=== PATIENT | female | born 1995 | race Caucasian/White ===

== ENCOUNTER 2019-04-01 14:28 | Inpatient (IN) ==
[2019-04-01] MEDS ORDERED: FAMOTIDINE 20 MG/2 ML VIAL IV ONE (14:39)
[2019-04-01] MEDS ORDERED: ceFAZolin 3,000 MG in SYRINGE 1 EACH IV ONE (14:39)
[2019-04-01] MEDS ORDERED: CITRIC ACID/SODIUM CITRATE 30 ML UDCUP PO ONE (14:39)
[2019-04-01] MEDS ORDERED: METOCLOPRAMIDE 10 MG/2 ML VIAL IV ONE (14:41)
[2019-04-01 15:09] LABS: Basophils % 0.1 % (0.0-0.8); Eosinophils # 0.1 10*3/uL (0.0-0.87); Eosinophils % 0.5 % (0.00-10.9); Hematocrit 32.4 VOL% (35.7-47.0); Hemoglobin 10.7 GM/DL (12.0-16.0); Immature Granulocytes % 0.6 %; Immature Granulocytes Absolute 0.06 #; Lymphocytes # 2.2 10*3/uL (1.4-4.0); Lymphocytes % 22.3 % (21.3-54.2); Mean Corpuscular Volume 85.7 FL (87-102); Mean Platelet Volume 11.8 FL (9.6-12.0); Monocytes % 4.9 % (1.7-12.7); Neutrophils % 71.6 % (38.7-73.9); Platelet Count 272 T/CUMM (130-400); Red Blood Count 3.78 MC/CUMM (3.8-5.5); Red Cell Distribution Width 15.8 % (9.3-17.3)
[2019-04-01 15:29] LABS: INR 0.8; PT Patient Result 9.1 SECS (9.6-12.2); Partial Thromboplastin Time 23.2 SECS (20.8-36.0)
[2019-04-01 15:36] LABS: Albumin 2.4 G/DL (3.4-5.0); Bilirubin,Total 0.4 MG/DL (0.2-1.0); Calcium 8.3 MG/DL (8.5-10.1); Osmolality,Calculated 274.5 MOS/KG (273-304); Total Protein 6.8 G/DL (6.4-8.3)
[2019-04-01] MEDS: LACTATED RINGERS 1,000 ML IV SCH ×2 (15:53→17:21)
[2019-04-01] MEDS ORDERED: OXYTOCIN/LR 20 UNIT/1,000 ML BAG IV ONE ×3 (17:34→19:21)
[2019-04-01] MEDS ORDERED: diphenhydrAMINE 50 MG/1 ML VIAL ONE (18:00)
[2019-04-01] MEDS ORDERED: DEXAMETHASONE 4 MG/1 ML VIAL ONE (18:02)
[2019-04-01] MEDS ORDERED: BUPIVACAINE SPINAL 0.75% 2 ML AMP SPINAL ONE (18:10)
[2019-04-01] MEDS ORDERED: DEXAMETHASONE 4 MG/1 ML VIAL IV ONE (18:29)
[2019-04-01] MEDS ORDERED: diphenhydrAMINE 50 MG/1 ML VIAL IV ONE (18:29)
[2019-04-01] MEDS ORDERED: CARBOPROST TROMETHAMINE 250 MCG/ML AMP IM ONE (18:48)
[2019-04-01] MEDS ORDERED: miSOPROStoL 200 MCG TABLET ONE (18:50)
[2019-04-01] MEDS ORDERED: miSOPROStoL 200 MCG TABLET PO ONE (18:51)
[2019-04-01 19:10] LABS: Apearance,Urine CLEAR (Clear); Bacteria,Urine Occasional /HPF (Few); Bilirubin,Urine Negative (Negative); Blood, Urine Negative (Negative); Glucose,Urine (UA) Negative (Negative); Ketones,Urine Negative (Negative); Mucus,Urine Few /LPF (Occasional); Nitrite,Urine Negative (Negative); Protein,Urine 30 MG/DL; RBC,Urine <1 /HPF (0-4); Squamous Epithelial Cell,Urine Occasional /HPF (0-10); Urine Color Yellow (Yellow); Urine Specific Gravity 1.026 (1.001-1.035); Urine Urobilinogen < 2.0 EU/DL (0.2-1.0); WBC,Urine 2 /HPF (0-6)
[2019-04-01] MEDS ORDERED: BENZOCAINE 20%/MENTHOL 0.5% SPRAY 56 GM CAN TOP PRN (19:21)
[2019-04-01] MEDS ORDERED: WITCH HAZEL PADS 100/JAR TOP PRN (19:21)
[2019-04-01] MEDS ORDERED: DIPH/TET/ACEL PERT BOOSTER VACCINE 0.5 ML VIAL IM ONE (19:21)
[2019-04-01] MEDS ORDERED: oxyCODONE/ACETAMINOPHEN 5-325 MG TABLET PO PRN (19:21)
[2019-04-01] MEDS ORDERED: LANOLIN 50% CREAM 0.3 OZ TUBE TOP PRN (19:21)
[2019-04-01] MEDS ORDERED: HYDROCORTISONE 2.5% RECTAL CREAM 30 GM TUBE TOP PRN (19:21)
[2019-04-01] MEDS ORDERED: RHO(D) IMMUNE GLOBULIN 300 MCG SYRINGE IM ONE (19:21)
[2019-04-01] MEDS ORDERED: MEASLES/MUMPS/RUBELLA VACCINE 0.5 ML VIAL SUBCUT ONE (19:21)
[2019-04-01] MEDS ORDERED: ONDANSETRON 4 MG/2 ML VIAL IV PRN (19:21)
[2019-04-01] MEDS ORDERED: BISACODYL 10 MG SUPP RECTAL PRN (19:21)
[2019-04-01] MEDS ORDERED: ACETAMINOPHEN 325 MG TABLET PO PRN (19:21)
[2019-04-01] MEDS ORDERED: PROMETHAZINE 25 MG/1 ML VIAL ONE (19:48)
[2019-04-01] MEDS ORDERED: MORPHINE 10 MG/10 ML VIAL ONE (19:48)
[2019-04-01] MEDS ORDERED: ePHEDrine 50 MG/ML AMP ONE (19:48)
[2019-04-01] MEDS ORDERED: PHENYLEPHRINE 1 MG/10 ML SYRINGE IV ONE (19:49)
[2019-04-01] MEDS ORDERED: LACTATED RINGERS 1,000 ML IV ONE (19:49)
[2019-04-01] MEDS ORDERED: ONDANSETRON 4 MG/2 ML VIAL ONE (19:49)
[2019-04-01] MEDS: IBUPROFEN 800 MG TABLET PO PRN (21:03)
[2019-04-02] MEDS: CLINDAMYCIN INJ 900 MG in PREMIX 1 EACH IV SCH ×2 (02:07→10:52)
[2019-04-02] MEDS: DOCUSATE SODIUM 100 MG CAPSULE PO SCH ×3 (02:19→20:19)
[2019-04-02] MEDS: LACTATED RINGERS 1,000 ML IV SCH (03:52)
[2019-04-02 05:48] LABS: Basophils % 0.1 % (0.0-0.8); Hematocrit 27.2 VOL% (35.7-47.0); Immature Granulocytes % 0.9 %; Immature Granulocytes Absolute 0.13 #; Lymphocytes # 2.5 10*3/uL (1.4-4.0); Lymphocytes % 18.1 % (21.3-54.2); Mean Corpuscular HGB Conc 33.1 GM/DL (32-36); Mean Corpuscular Volume 85.8 FL (87-102); Mean Platelet Volume 12.1 FL (9.6-12.0); Neutrophils % 74.9 % (38.7-73.9); Platelet Count 210 T/CUMM (130-400); Red Blood Count 3.17 MC/CUMM (3.8-5.5); Red Cell Distribution Width 15.6 % (9.3-17.3); White Blood Count 13.9 T/CUMM (4-12)
[2019-04-02] MEDS ORDERED: FUROSEMIDE 40 MG TABLET PO ONE (07:12)
[2019-04-02] MEDS: oxyCODONE/ACETAMINOPHEN 5-325 MG TABLET PO PRN ×3 (07:36→23:22)
[2019-04-02] MEDS: IBUPROFEN 800 MG TABLET PO PRN ×2 (11:10→20:19)
[2019-04-02] MEDS ORDERED: diphenhydrAMINE CAP 50 MG CAPSULE PO PRN (11:15)
[2019-04-02 11:38] LABS: Apearance,Urine CLEAR (Clear); Bacteria,Urine Occasional /HPF (Few); Bilirubin,Urine Negative (Negative); Blood, Urine Large mg/dL (Negative); Glucose,Urine (UA) Negative (Negative); Ketones,Urine Negative (Negative); Nitrite,Urine Negative (Negative); Protein,Urine Negative; RBC,Urine 4 /HPF (0-4); Squamous Epithelial Cell,Urine Occasional /HPF (0-10); Urine Color Straw (Yellow); Urine Specific Gravity 1.003 (1.001-1.035); Urine Urobilinogen < 2.0 EU/DL (0.2-1.0); WBC,Urine 3 /HPF (0-6)
[2019-04-02] MEDS: LABETALOL 100 MG TABLET PO SCH ×2 (13:43→22:07)
[2019-04-02] MEDS: OXYBUTYNIN XL 5 MG TABLET PO SCH (16:05)
[2019-04-02] MEDS ORDERED: SIMETHICONE CHEW 80 MG TABLET PO PRN (19:55)
[2019-04-02] MEDS: MAGNESIUM HYDROXIDE SUSP 30 ML UDCUP PO PRN (20:19)
[2019-04-03] MEDS: LABETALOL 100 MG TABLET PO SCH (05:32)
[2019-04-03 07:44] VITALS: BP 114/63
[2019-04-03] MEDS: OXYBUTYNIN XL 5 MG TABLET PO SCH (08:51)
[2019-04-03] MEDS: DOCUSATE SODIUM 100 MG CAPSULE PO SCH (08:51)
[2019-04-03] MEDS: MAGNESIUM HYDROXIDE SUSP 30 ML UDCUP PO PRN (08:52)
[2019-04-03] MEDS ORDERED: INFLUENZA VIRUS VACCINE 0.5 ML SYRINGE IM ONE (11:00)
== END 2019-04-03 14:00 | disposition home or self-care (01) | DRG 788 ==
LOC: N.LDOUT 14:28 → N.LD 14:32 → N.OB 22:15
PROVIDERS: ADMIT Specialist; ATTEND Specialist
PROC: LDCSECT (ICD-10-PCS; 2019-04-01 17:00)

== ENCOUNTER 2022-01-31 15:41 | Inpatient (IN) ==
[2022-01-31] MEDS ORDERED: MAGNESIUM SULF RIDER 4 GM/100 ML PREMIX IV PRN (17:03)
[2022-01-31] MEDS ORDERED: MAGNESIUM SULF RIDER 2 GM/50 ML PREMIX IV PRN (17:03)
[2022-01-31] MEDS ORDERED: traMADol 50 MG TABLET PO PRN (17:03)
[2022-01-31] MEDS ORDERED: PROMETHAZINE 25 MG/1 ML VIAL IM PRN (17:03)
[2022-01-31] MEDS ORDERED: POTASSIUM CHLORIDE RIDER 10 MEQ/100 ML PREMIX IV PRN (17:03)
[2022-01-31] MEDS ORDERED: POTASSIUM CHLORIDE 20 MEQ TABLET PO PRN (17:03)
[2022-01-31] MEDS ORDERED: ACETAMINOPHEN 325 MG TABLET PO PRN (17:03)
[2022-01-31] MEDS ORDERED: MORPHINE 2 MG/1 ML SYRINGE IV PRN (17:03)
[2022-01-31] MEDS ORDERED: hydrALAZINE 20 MG/1 ML VIAL IV PRN (17:20)
[2022-01-31 18:43] LABS: Basophils % 0.4 % (0.0-0.8); Eosinophils # 0.2 10*3/uL (0.0-0.87); Eosinophils % 2.1 % (0.00-10.9); Hematocrit 43.3 VOL% (35.7-47.0); Hemoglobin 14.3 GM/DL (12.0-16.0); Immature Granulocytes % 0.1 %; Immature Granulocytes Absolute 0.01 #; Lymphocytes # 3.2 10*3/uL (1.4-4.0); Lymphocytes % 41.3 % (21.3-54.2); Mean Corpuscular Volume 86.9 FL (87-102); Mean Platelet Volume 10.6 FL (9.6-12.0); Monocytes # 0.4 10*3/uL (0.11-0.8); Monocytes % 5.4 % (1.7-12.7); Neutrophils % 50.7 % (38.7-73.9); Platelet Count 267 T/CUMM (130-400); Red Blood Count 4.98 MC/CUMM (3.8-5.5); White Blood Count 7.7 T/CUMM (4-12)
[2022-01-31 19:07] LABS: Calcium 9.4 MG/DL (8.5-10.1); Osmolality,Calculated 280.1 MOS/KG (273-304); Potassium 3.3 MMOL/L (3.5-5.1)
[2022-01-31 19:10] LABS: Alanine Aminotransferase 51 U/L (13-56); Albumin 4.1 G/DL (3.4-5.0); Alkaline Phosphatase 67 U/L (45-117); Aspartate Amino Transferase 21 U/L (0-37); Bilirubin,Direct < 0.100 MG/DL (0.0-0.20); Bilirubin,Indirect 0.3 MG/DL (0.0-1.0); Total Protein 8.4 G/DL (6.4-8.2)
[2022-01-31] MEDS: DOCUSATE SODIUM 100 MG CAPSULE PO SCH (20:41)
[2022-01-31] MEDS: SODIUM CHLORIDE 0.9% 1,000 ML IV SCH (21:18)
[2022-01-31] MEDS: CIPROFLOXACIN INJ 400 MG/200 ML PREMIX IV SCH (21:19)
[2022-01-31] MEDS: ONDANSETRON 4 MG/2 ML VIAL IV PRN (21:24)
[2022-01-31] MEDS: metroNIDAZOLE INJ 500 MG/100 ML PREMIX IV SCH (22:10)
[2022-02-01] MEDS: ONDANSETRON 4 MG/2 ML VIAL IV PRN ×2 (04:26→08:57)
[2022-02-01 05:38] LABS: Bacteria,Urine Occasional /HPF (Few); Mucus,Urine Many /LPF (Occasional); Squamous Epithelial Cell,Urine Occasional /HPF (0-10); Urine Appearance Clear (Clear); Urine Color Yellow (Yellow)
[2022-02-01 05:39] LABS: Bilirubin,Urine Negative (Negative); Blood, Urine Trace mg/dL (Negative); Glucose,Urine (UA) Negative (Negative); Ketones,Urine Negative (Negative); Nitrite,Urine Negative (Negative); Protein,Urine Negative (Negative); Urine Specific Gravity > 1.030 (1.001-1.035); Urine Urobilinogen 0.2 eU/dL (<2.0); Urine pH 5.5 (4.5-8.0)
[2022-02-01] MEDS: SODIUM CHLORIDE 0.9% 1,000 ML IV SCH ×2 (06:04→18:33)
[2022-02-01] MEDS: metroNIDAZOLE INJ 500 MG/100 ML PREMIX IV SCH ×3 (06:05→22:40)
[2022-02-01 06:17] LABS: Basophils % 0.4 % (0.0-0.8); Eosinophils # 0.1 10*3/uL (0.0-0.87); Eosinophils % 2.2 % (0.00-10.9); Hematocrit 39.7 VOL% (35.7-47.0); Hemoglobin 12.7 GM/DL (12.0-16.0); Immature Granulocytes % 1.1 %; Immature Granulocytes Absolute 0.06 #; Lymphocytes # 2.6 10*3/uL (1.4-4.0); Lymphocytes % 47.9 % (21.3-54.2); Mean Corpuscular Volume 89.8 FL (87-102); Mean Platelet Volume 10.5 FL (9.6-12.0); Monocytes # 0.3 10*3/uL (0.11-0.8); Monocytes % 6.4 % (1.7-12.7); Platelet Count 226 T/CUMM (130-400); Red Blood Count 4.42 MC/CUMM (3.8-5.5); White Blood Count 5.4 T/CUMM (4-12)
[2022-02-01 06:41] LABS: Albumin 3.3 G/DL (3.4-5.0); Bilirubin,Total 0.4 MG/DL (0.20-1.00); Calcium 8.6 MG/DL (8.5-10.1); Potassium 3.9 MMOL/L (3.5-5.1); Total Protein 6.9 G/DL (6.4-8.2)
[2022-02-01] MEDS: PANTOPRAZOLE 40 MG TABLET PO SCH (08:32)
[2022-02-01] MEDS: DOCUSATE SODIUM 100 MG CAPSULE PO SCH ×2 (08:32→21:16)
[2022-02-01] MEDS: CIPROFLOXACIN INJ 400 MG/200 ML PREMIX IV SCH ×2 (08:57→21:18)
[2022-02-01] MEDS ORDERED: ENOXAPARIN 40 MG/0.4 ML SYRINGE SUBCUT SCH (09:00)
[2022-02-01] MEDS ORDERED: HYDROmorphone 1 MG/1 ML SYRINGE IV PRN (09:55)
[2022-02-01] MEDS ORDERED: KETOROLAC 15 MG/1 ML VIAL IV PRN (09:55)
[2022-02-01] MEDS ORDERED: SCOPOLAMINE 1.5 MG PATCH TRANSDERM ONE (14:44)
[2022-02-01] MEDS ORDERED: FAMOTIDINE 20 MG TABLET PO ONE (14:44)
[2022-02-01] MEDS ORDERED: DIAZEPAM 5 MG TABLET PO ONE (14:44)
[2022-02-02] MEDS: SODIUM CHLORIDE 0.9% 1,000 ML IV SCH ×4 (00:14→23:56)
[2022-02-02] MEDS ORDERED: SCOPOLAMINE 1.5 MG PATCH TRANSDERM ONE (06:00)
[2022-02-02] MEDS ORDERED: DIAZEPAM 5 MG TABLET PO ONE ×2 (06:00)
[2022-02-02] MEDS ORDERED: FAMOTIDINE 20 MG TABLET PO ONE (06:00)
[2022-02-02] MEDS: ONDANSETRON 4 MG/2 ML VIAL IV PRN ×3 (06:07→23:53)
[2022-02-02] MEDS: metroNIDAZOLE INJ 500 MG/100 ML PREMIX IV SCH ×3 (06:07→23:43)
[2022-02-02 06:47] LABS: Basophils % 0.4 % (0.0-0.8); Eosinophils # 0.1 10*3/uL (0.0-0.87); Eosinophils % 2.3 % (0.00-10.9); Hematocrit 39.4 VOL% (35.7-47.0); Hemoglobin 12.5 GM/DL (12.0-16.0); Immature Granulocytes % 0.2 %; Immature Granulocytes Absolute 0.01 #; Lymphocytes # 2.5 10*3/uL (1.4-4.0); Lymphocytes % 48.3 % (21.3-54.2); Mean Corpuscular HGB Conc 31.7 GM/DL (32-36); Mean Corpuscular Volume 89.5 FL (87-102); Monocytes # 0.4 10*3/uL (0.11-0.8); Monocytes % 6.9 % (1.7-12.7); Neutrophils % 41.9 % (38.7-73.9); Platelet Count 213 T/CUMM (130-400); Red Cell Distribution Width 13.9 % (9.3-17.3); White Blood Count 5.2 T/CUMM (4-12)
[2022-02-02 07:00] LABS: Alanine Aminotransferase 42 U/L (13-56); Alkaline Phosphatase 53 U/L (45-117); Aspartate Amino Transferase 20 U/L (0-37); Bilirubin,Total < 0.39 MG/DL (0.20-1.00); Blood Urea Nitrogen 4 MG/DL (7-18); Calcium 8.4 MG/DL (8.5-10.1); Carbon Dioxide 22 MMOL/L (21-32); Chloride 116 MMOL/L (98-107); Glucose 99 MG/DL (74-106); Osmolality,Calculated 282.8 MOS/KG (273-304); Potassium 3.7 MMOL/L (3.5-5.1); Sodium 144 MMOL/L (136-145); Total Protein 6.4 G/DL (6.4-8.2)
[2022-02-02] MEDS ORDERED: INDOCYANINE GREEN 25 MG VIAL IV ONE (07:00)
[2022-02-02] MEDS ORDERED: ROCURONIUM 50 MG/5 ML VIAL IV ONE (11:14)
[2022-02-02] MEDS ORDERED: MIDAZOLAM 2 MG/2 ML VIAL ONE (11:14)
[2022-02-02] MEDS ORDERED: LIDOCAINE 2% 5 ML VIAL ONE (11:14)
[2022-02-02] MEDS ORDERED: fentaNYL 100 MCG/2 ML VIAL ONE ×2 (11:14→13:14)
[2022-02-02] MEDS ORDERED: propofoL 200 MG/20 ML VIAL IV ONE (11:14)
[2022-02-02] MEDS ORDERED: DEXAMETHASONE 4 MG/1 ML VIAL ONE (12:05)
[2022-02-02] MEDS ORDERED: ONDANSETRON 4 MG/2 ML VIAL ONE ×2 (12:09→13:20)
[2022-02-02] MEDS ORDERED: SUCCINYLCHOLINE 200 MG/10 ML VIAL ONE (12:16)
[2022-02-02] MEDS ORDERED: CLINDAMYCIN INJ 900 MG/50 ML PREMIX IV ONE (12:22)
[2022-02-02] MEDS ORDERED: KETOROLAC 30 MG/1 ML VIAL ONE (12:30)
[2022-02-02] MEDS ORDERED: ACETAMINOPHEN INJ 1,000 MG/100 ML VIAL IV ONE (13:11)
[2022-02-02] MEDS ORDERED: TISSUE ADHESIVE 1 EACH APPLICATOR TOP ONE (13:15)
[2022-02-02] MEDS ORDERED: SUGAMMADEX 200 MG/2 ML VIAL IV ONE (13:17)
[2022-02-02] MEDS ORDERED: GLYCOPYRROLATE 0.4 MG/2 ML VIAL ONE (13:18)
[2022-02-02] MEDS ORDERED: SEVOFLURANE 1 UNIT/15 MINUTE INH ONE (13:38)
[2022-02-02] MEDS ORDERED: MEPERIDINE 50 MG/1 ML VIAL ONE (13:46)
[2022-02-02] MEDS ORDERED: HYDROmorphone 1 MG/1 ML SYRINGE IV PRN (13:58)
[2022-02-02] MEDS ORDERED: MEPERIDINE 25 MG/1 ML VIAL IV PRN (13:58)
[2022-02-02] MEDS ORDERED: PROMETHAZINE INJ 25 MG in SODIUM CHLORIDE 0.9% 50 ML IV PRN (13:58)
[2022-02-02] MEDS ORDERED: MORPHINE 2 MG/1 ML SYRINGE IV ONE (14:04)
[2022-02-02] MEDS ORDERED: MORPHINE 10 MG/1 ML VIAL ONE (14:04)
[2022-02-02] MEDS: DOCUSATE SODIUM 100 MG CAPSULE PO SCH ×2 (14:43→22:13)
[2022-02-02] MEDS: PANTOPRAZOLE 40 MG TABLET PO SCH (14:43)
[2022-02-02] MEDS: CIPROFLOXACIN INJ 400 MG/200 ML PREMIX IV SCH ×2 (14:43→20:51)
[2022-02-03 00:21] LABS: CDT Result Negative (Negative); CDT Specimen Source STOOL
[2022-02-03] MEDS: metroNIDAZOLE INJ 500 MG/100 ML PREMIX IV SCH (06:32)
[2022-02-03 08:15] VITALS: BP 117/62
[2022-02-03] MEDS: CIPROFLOXACIN INJ 400 MG/200 ML PREMIX IV SCH (09:08)
[2022-02-03] MEDS: DOCUSATE SODIUM 100 MG CAPSULE PO SCH (09:08)
[2022-02-03] MEDS: PANTOPRAZOLE 40 MG TABLET PO SCH (09:08)
[2022-02-03] MEDS: SODIUM CHLORIDE 0.9% 1,000 ML IV SCH (10:00)
== END 2022-02-03 12:45 | disposition home or self-care (01) | DRG 418 ==
LOC: N.3E 17:02
PROVIDERS: ADMIT Family Medicine; ATTEND Family Medicine